=== PATIENT | female | born 2000 | race Two or more races ===

== ENCOUNTER 2025-04-05 13:24 | Emergency (ER) | payer OTHER ==
[~2025-04-05] VITALS: Ht 165.1 cm; Wt 61.2 kg
[2025-04-05] MEDS ORDERED: ONDANSETRON HCL 2 MG/ML VIAL ONE (14:18)
[2025-04-05] MEDS ORDERED: FAMOTIDINE/PF 20 MG/2 ML VIAL ONE (14:18)
[2025-04-05] MEDS ORDERED: LACTOBACILLUS ACIDOPHILUS 1 CAP CAP PO ONE ×2 (14:18→14:30)
[2025-04-05] MEDS ORDERED: LEVOTHYROXINE13 MCG (14:21)
[2025-04-05] MEDS ORDERED: ONDANSETRON HCL 2 MG/ML VIAL IV ONE (14:30)
[2025-04-05] MEDS ORDERED: 0.9 % SODIUM CHLORIDE 1,000 ML IV ONE (14:30)
[2025-04-05] MEDS ORDERED: FAMOTIDINE/PF 20 MG/2 ML VIAL IV ONE (14:30)
[2025-04-05 15:07] LABS: BASO % 0.0 % (0.1-1.2); EOS # 0.00 (0.04-0.54); EOS % 0.0 % (0.7-7.0); LYMPH # 0.22 (1.18-3.74); LYMPH % 3.4 % (19.3-53.1); MEAN PLATELET VOLUME 11.60 fl (9.4-12.4); MONO # 0.13 (0.24-0.82); MONO % 2.0 % (4.7-12.5); NEUT # 6.08 (1.56-6.13); NEUT % 94.4 % (34.0-71.1); RED CELL DISTRIBUTION WIDTH 14.9 % (11.6-14.4)
[2025-04-05 15:49] LABS: ALT/SGPT 20.0 U/L (12-78); AST/SGOT 17.0 U/L (15-37); BILIRUBIN TOTAL 1.42 mg/dL (0.3-1.2); BUN CREA RATIO 27.0 (7.0-25.0); CREATININE SERUM 0.59 mg/dL (0.55-1.02); GFR 125.22; GLOBULINA 3.7 G/DL (2.4-3.5); GLUCOSE FASTING 128.0 mg/dL (65-100); OSMOLALITY SERUM 284.0 MOSM/KG (275-295)
[2025-04-05 16:47] LABS: BILIRUBIN TOTAL 1.35 mg/dL (0.3-1.2); BILIRUBIN,CONJUGATED 0.25 mg/dL (0.0-0.2)
[2025-04-05] MEDS ORDERED: ONDANSETRON HCL4 MG PO (17:33)
[2025-04-05] MEDS ORDERED: PEPCID AC20 MG PO (17:33)
[2025-04-05] MEDS ORDERED: INTESTINEX680 M1 PO (17:33)
[2025-04-05] MEDS ORDERED: LEVSIN0.125 MG PO (17:33)
[2025-04-05 18:09] VITALS: BP 100/60; O2SAT 100
== END 2025-04-05 18:11 ==
LOC: ER 13:24
PROVIDERS: Emergency Medicine; General Practice
DX: K52.89 Other specified noninfective gastroenteritis and colitis (principal); E06.3 Autoimmune thyroiditis